=== PATIENT | female | born 1985 | race Two or more races ===

== ENCOUNTER 2024-08-25 07:35 | Inpatient (IN) | payer MEDICAID, SELFPAY ==
[2024-08-25] VITALS (179 sets, daily range): BP systolic 84–149; BP diastolic 52–80; PULSE 55–187; RESP 16; TEMP 36.3–36.9; O2SAT 82–99; BMI 25.9
--- NOTE | 2024-08-25 07:41 | XR_ITS ---
Examination: Complete OB ultrasound greater than 14 weeks Date and time of exam: August 25, 2024 at 0819 hrs. Indications: Advanced maternal age Findings: Viable intrauterine single fetus with single amniotic sac presentation cephalic Cardiac motion 136 BPM Placenta anterior grade 3 Umbilical cord insertion seen Amniotic fluid index 7 cm Cervix obscured by the fetus Right ovary 2.6 x 1.8 x 1.9 cm arterial flow 13 mm right ovarian follicular cyst Left ovary obscured by bowel gas. Composite estimated gestational age based on BPD, head circumference, abdominal circumference, femur length is 38 weeks 1 day Estimated weight 3577 g. Survey of intracranial anatomy, spinal anatomy, abdominal anatomy, four-chamber heart performed with no abnormalities identified. Impression: Viable intrauterine gestation cephalic presentation Estimated gestational age 38 weeks 1 day.
[2024-08-25 08:25] LABS: Basophils % (Auto) 0 % (0-2.5); Eosinophils # (Auto) 0.1 Thou/mm3 (0.0-0.5); Eosinophils % (Auto) 0 % (0-10); Hematocrit 35.9 % (36.0-46.0); Hemoglobin 12.5 g/dL (12.0-16.0); Immature Granulocytes % (Auto) 2 % (0-0); Immature Granulocytes Auto 0.17 Thou/mm3 (0.00-0.00); Lymphocytes # (Auto) 2.2 Thou/mm3 (1.0-4.8); Lymphocytes % (Auto) 20 % (10-50); Mean Corpuscular HGB Conc 34.8 g/dl (31.0-37.0); Mean Corpuscular Hemoglobin 32.4 pg (25.0-35.0); Mean Corpuscular Volume 93 fL (80-100); Monocytes # (Auto) 0.7 Thou/mm3 (0.0-0.8); Monocytes % (Auto) 7 % (0-12); Neutrophils % (Auto) 72 % (37-80); Nucleated Red Blood Cell % 0 /100 WBC (0); Platelet Count 183 Thou/mm3 (140-440); RDW Standard Deviation 56.5 fL (36.4-46.3); Red Blood Count 3.86 Miln/mm3 (4.00-5.20); White Blood Count 11.2 Thou/mm3 (3.6-11.0)
[2024-08-25] MEDS: RINGERS LACTATED 1000 ML 1,000 ML 125 ML IV ×2 (09:35→13:39)
[2024-08-25] MEDS: Ampicillin Inj 2,000 MG in SODIUM CHLORIDE 0.9% (P) 100 ML 200 MG IV (09:37)
[2024-08-25] MEDS: DINOPROSTONE 10 MG VAG.SUPP VAGINAL ×2 (10:27→16:07)
--- NOTE | 2024-08-25 10:37 | PD.LDHP ---
Documentation for date of: 08/25/24 OB Labor/Induct. HPI History of Present Illness History of present illness: 39 y/o @39w1d, per LMP , here for IOL. Patient was scheduled tohave a c section for breech presentation , however , on US today , its cephalic. has been uncomplicated. No contraction , leaking bleeding. Previous VDX3 History of Present Dating criteria: LMP confirmed by 1st trimester US Adequate Care: Yes Labs Labs: Positive: Group Beta Strep and Negative: Hepatitis B, HIV, Chlamydia and Gonorrhea Meds Home Medications and Allergies Home Medications ?Medication ?Instructions ?Recorded ?Confirmed ?Type ferrous sulfate 325 mg (65 mg 325 mg PO QDAY 08/25/24 08/25/24 History iron) tablet (FeroSul) vitamins no.159-iron 1 tab PO QDAY 08/25/24 08/25/24 History fumarate 28 mg-folic acid 800 mcg tablet ( Vitamin) Allergies Allergy/AdvReac Type Severity Reaction Status Date / Time No Known Allergies Allergy Verified 08/25/24 07:59 OB Exam Physical Exam Vital signs: Pulse BP 78 119/75 08/25/24 10:26 08/25/24 10:26 Constitutional Constitutional: no acute distress Routine HEENT Exam Head: Present normocephalic and atraumatic Eye: Present EOMI and PERRL ENT: Present mucous membranes moist Routine Neck Exam Neck: Present supple and trachea midline Routine Cardiovascular Exam Cardiovascular: Present RRR Routine Abdominal Exam Abdominal: Present soft and normoactive bowel sounds Detailed Labor and Delivery Exam Dilation (cm): fingertip Effacement (%): 0 Cervix position: anterior Presentation: Vertex Routine Extremities Exam Extremities: Present full ROM Routine Skin Exam Skin: Present intact, dry and warm Routine Neurological Exam Neurological: Present alert, oriented X3 and CN II-XII intact Routine Psychiatric Exam Psychiatric: Present normal affect and normal thought process OB Results Labs 08/25/24 08:17 Labs: Short CBC 08/25/24 Range/Units 08:17 WBC 11.2 H (3.6-11.0) Thou/mm3 Hgb 12.5 (12.0-16.0) g/dL Hct 35.9 L (36.0-46.0) % Plt Count 183 (140-440) Thou/mm3 Impressions Impression: 39 Y/O @39W1D, IOL for advanced maternal age GBS+ve, started prophylaxis NIPT, Carrier screen negative. Anatomy wnl UScephalic, EFW 3577 gm OB Assessment & Plan Additional Plan Additional Plan Comment: cervidil to be started Contineous FHT monitoring
--- NOTE | 2024-08-25 10:38 | PRELIM_ITS ---
Obstetric ultrasound. August 25, 2024 at 0819 hoursClinical history: Unstable lie, AMA.Comparison: None.Findings:There is a gravid uterus with a live fetus in cephalic presentation of mean gestational age 38 weeks and 1 day (by biometry). cardiac activity is present at a heart rate of 136 beats per minute. The placenta is anterior in location, maturity grade III. There is no evidence of placenta previa or retroplacental hemorrhage. Amniotic fluid is adequate (ACOSTA = 7 cm) and is normal f or advanced gestational age. Estimated weight is 3577 grams+/- 529 grams. Estimated due date by ultrasound is 09/07/2024. The cervical length could not be evaluated due to bowel gas artifact. The right ovary measures 2.6 x 1.8 x 1.9 cm and demonstrates a small cystic lesion measuring 1.3 x 1 x 1. 1 cm, which may represent dominant follicle. The right ovary demonstrates normal color flow signal on Doppler evaluation. The left ovary is not visualized due to bowel gas.No pelvic free fluid is seen. Impression:Gravid uterus with a single live fetus in cephalic presentation of mean gestational age 38 weeks and 1 day.Other findings as described above. Report Electronically Signed By: Cami Estrada 10:37:57 AM [EST]
[2024-08-25] MEDS: Ampicillin Inj 1,000 MG in SODIUM CHLORIDE 0.9% (P) 50 ML 50 MG IV ×2 (14:49→19:54)
[2024-08-25 15:54] LABS: Syphilis Nonreactive (Nonreactive)
--- NOTE | 2024-08-25 16:38 | PD.LDPN ---
Documentation for date of: 08/25/24 OB Labor Progress Note Pain Control Comments: I spoke to the patinet regarding plan of care. Cervidil placed earlier was removed as the baby was cat 2 FHT . After resuscitation , baby reverted back to category 1. Cervical status remained unchanged. Option of PLTCS was also discussed with her as she is still remote from delivery. María Elena wanst to try again after status is reassuring Second cervidil to be placed and hearn can be inserted after cervix is more favorable for insertion Pelvic Exam Dilation (cm): fingertip Effacement (%): 0
[2024-08-25] MEDS: RINGERS LACTATED 1000 ML 1,000 ML 100 ML IV (19:54)
[2024-08-25] MEDS: LIDOCAINE HCL 1% 20 ML VIAL INFL (22:32)
[2024-08-25] MEDS: METHYLERGONOVINE INJ 0.2 MG/ML VIAL IM (22:41)
[2024-08-25] MEDS: OXYTOCIN in NS 20 units 20 UNIT/1,000 ML BAG 125 UNIT IV (22:43)
[2024-08-25] MEDS: MISOPROSTOL 200 mCg TABLET 800 MCG PR (22:45)
[2024-08-25] MEDS: TRANEXAMIC ACID 1,000 MG IVPB 1,000 MG/100 ML BAG 200 MG IV (22:46)
[2024-08-25] MEDS: BENZO/LANO/ALOE (Dermoplast) 60 GM CAN 1 SPRAY TOP (22:58)
[2024-08-26] VITALS (10 sets, daily range): BP systolic 99–130; BP diastolic 67–81; PULSE 72–97; RESP 15–16; TEMP 36.8–37.2; O2SAT 94–98
--- NOTE | 2024-08-26 02:11 | PD.LDDELS ---
Data (Golden) Data : 5 Para: 3 Term: 3 : 0 : 1 Delivery Data (Golden) Labor Data ROM Date: 08/25/24 ROM Time: 22:05 Rupture Type: AROM Amniotic Fluid: Clear Delivery Data Labor Onset Stage 1 Date: 08/25/24 Labor Onset Stage 1 Time: 21:22 Labor Onset Stage 2 Date: 08/25/24 Labor Onset Stage 2 Time: 22:22 Delivery Date: 08/25/24 Delivery Time: 22:36 Gestational age (weeks): 39 Gestational age (days): 1 Placenta Delivery Date: 08/25/24 Placenta Delivery Time: 22:38 Delivered by: Sol Alcantara Delivery nurse: Rose Marie Smith Other staff at delivery: 2nd Nurse Other staff at delivery: Nursery Nurse Other staff at delivery: Nursery Nurse Other staff at delivery: RT Other staff at delivery: Samanta Hammer Other staff at delivery: Cecilia Mays Other staff at delivery: jennifer herrera Other staff at delivery: sharon Delivery Method Delivery: Vaginal Delivery Type: Vacuum Assisted Presentation: Vertex Anesthesia Type Primary Anesthesia: Epidural Secondary Anesthesia: Local Episiotomy Episiotomy: Right Mediolateral Perineal repair Sutures used for repair: 3.0 Vicryl EBL Estimated blood loss (ml): 350 Umbilical Cord Nuchal Cord: None [place] Data (Golden) [place] Data Infant Gender: Male Identification Band Number: [id number] Weight Grams: 3640 1 Minute Total: 9 5 Minute Total: 9 Additional Comments Additional comments: shoulders and body delivered atraumatically AMTSL done placenta delivered intact atonic uterus resolved after tranexamic acid, Methergine and misoprostol
[2024-08-26 06:25] LABS: Basophils % (Auto) 0 % (0-2.5); Eosinophils % (Auto) 0 % (0-10); Hematocrit 31.9 % (36.0-46.0); Hemoglobin 10.9 g/dL (12.0-16.0); Immature Granulocytes % (Auto) 1 % (0-0); Lymphocytes # (Auto) 1.3 Thou/mm3 (1.0-4.8); Lymphocytes % (Auto) 8 % (10-50); Mean Corpuscular HGB Conc 34.2 g/dl (31.0-37.0); Mean Corpuscular Hemoglobin 32.1 pg (25.0-35.0); Mean Corpuscular Volume 94 fL (80-100); Monocytes % (Auto) 6 % (0-12); Neutrophils # (Auto) 13.8 Thou/mm3 (1.8-7.7); Neutrophils % (Auto) 85 % (37-80); Nucleated Red Blood Cell % 0 /100 WBC (0); Platelet Count 162 Thou/mm3 (140-440); RDW Standard Deviation 55.6 fL (36.4-46.3); White Blood Count 16.2 Thou/mm3 (3.6-11.0)
[2024-08-26] MEDS: IBUPROFEN TAB 400 MG TABLET 800 MG PO ×2 (08:38→19:18)
--- NOTE | 2024-08-26 08:55 | PD.LDPPPRG ---
Subjective Subjective Interval history: Delivery type: Patient doing well this morning. No acute complaints. Ambulating, tolerating p.o. and voiding without difficulty. HTN/Pre-Eclampsia screen: No chest pain, shortness of breath, headache, visual changes, epigastric or right upper quadrant pain. Breast-feeding, lochia diminishing. Bowel: Flatus+/ BM+ Exam Vital Signs Temp Pulse Resp BP Pulse Ox O2 Del Method 98.7 F 72 16 130/81 95 Room Air 08/26/24 03:45 08/26/24 03:45 08/26/24 03:45 08/26/24 03:45 08/26/24 03:45 08/26/24 03:45 Constitutional Constitutional: no acute distress Routine HEENT Exam Head: Present normocephalic and atraumatic Eye: Present EOMI and PERRL ENT: Present mucous membranes moist Routine Neck Exam Neck: Present supple and trachea midline Routine Respiratory Exam Respiratory: Present chest non-tender, lungs clear, normal breath sounds and no resp distress Routine Cardiovascular Exam Cardiovascular: Present RRR Routine Abdominal Exam Abdominal: Present soft and normoactive bowel sounds Routine Extremities Exam Extremities: Present full ROM Routine Skin Exam Skin: Present intact, dry and warm Routine Neurological Exam Neurological: Present alert, oriented X3 and CN II-XII intact Routine Psychiatric Exam Psychiatric: Present normal affect and normal thought process Objective Labs 08/26/24 05:42 Labs: Laboratory Results - last 24 hr 08/25/24 08/25/24 08/26/24 08:00 08:17 05:42 WBC 11.2 H 16.2 H D RBC 3.86 L 3.40 L Hgb 12.5 10.9 L Hct 35.9 L 31.9 L MCV 93 94 MCH 32.4 32.1 MCHC 34.8 34.2 RDW Std Deviation 56.5 H 55.6 H Plt Count 183 162 Neut % (Auto) 72 85 H Lymph % (Auto) 20 8 L Roberts % (Auto) 7 6 Eos % (Auto) 0 0 Baso % (Auto) 0 0 Neut # (Auto) 8.0 H 13.8 H Lymph # (Auto) 2.2 1.3 Roberts # (Auto) 0.7 1.0 H Eos # (Auto) 0.1 0.0 Baso # (Auto) 0.0 0.0 Immature Gran # (Auto) 0.17 H 0.10 H Absolute Nucleated RBC 0.00 0.00 Immature Gran % 2 H 1 H Nucleated RBC % 0 0 Syphilis Serology Nonreactive Blood Type B Positive Antibody Screen NEGATIVE Blood Bank Wristband ID Yes Assessment & Plan Problem List (1) Vaginal delivery: Status: Acute Assessment and plan: 1. Continue routine /post-op care 2. Labs reviewed, cbc appropriate 3. Remove dressing/[place] 4. Encourage to ambulate, shower 5. Encourage PO intake, breast feeding Time Spent With Patient Time: Total time spent is greater than 50% in coordination of care (as documented) at patient's floor/unit and/or counseling patient:
[2024-08-27 00:20] VITALS: BP 94/61; PULSE 70; RESP 12; TEMP 36.6; O2SAT 97
[2024-08-27 08:15] VITALS: BP 95/68; PULSE 73; RESP 16; TEMP 36.6; O2SAT 99
--- NOTE | 2024-08-27 09:02 | PD.LDPPPRG ---
Subjective Subjective Interval history: Delivery type: Patient doing well this morning. No acute complaints. Ambulating, tolerating p.o. and voiding without difficulty. HTN/Pre-Eclampsia screen: No chest pain, shortness of breath, headache, visual changes, epigastric or right upper quadrant pain. Breast-feeding, lochia diminishing. Bowel: Flatus+/ BM+ Exam Vital Signs Temp Pulse Resp BP Pulse Ox O2 Del Method 97.9 F 70 12 94/61 97 Room Air 08/27/24 00:20 08/27/24 00:20 08/27/24 00:20 08/27/24 00:20 08/27/24 00:20 08/27/24 00:20 Constitutional Constitutional: no acute distress Routine HEENT Exam Head: Present normocephalic and atraumatic Eye: Present EOMI and PERRL ENT: Present mucous membranes moist Routine Neck Exam Neck: Present supple and trachea midline Routine Respiratory Exam Respiratory: Present chest non-tender, lungs clear, normal breath sounds and no resp distress Routine Cardiovascular Exam Cardiovascular: Present RRR Routine Abdominal Exam Abdominal: Present soft and normoactive bowel sounds Routine Extremities Exam Extremities: Present full ROM Routine Skin Exam Skin: Present intact, dry and warm Routine Neurological Exam Neurological: Present alert, oriented X3 and CN II-XII intact Routine Psychiatric Exam Psychiatric: Present normal affect and normal thought process Objective Labs 08/26/24 05:42 Assessment & Plan Problem List (1) Vaginal delivery: Status: Acute Assessment and plan: PPD/POD#2 1. Continue routine care 2. Transition to PO meds. 3. Encourage to ambulate/ breast-feed 4. Anticipate discharge home today. Time Spent With Patient Time: Total time spent is greater than 50% in coordination of care (as documented) at patient's floor/unit and/or counseling patient:
--- NOTE | 2024-08-27 09:03 | ESDS_ITS ---
DS: Providers Provider Date of admission: 08/25/24 07:35 Primary care physician: CHASTITY Cheney(COLLEEN) Admitting Provider: Sol Alcantara MD Attending Provider on Admission: Pradip Rader MD Consults: 08/25/24 22:50 Referral Routine Comment: Attending Provider on DC: Pradip Rader MD Discharging Provider: Pradip Rader MD DS: Diagnosis Problem List Completed Was Problem List Reviewed/Reconciled?: Yes Summary/Hosp Course Brief History: 39 y/o @39w1d, per LMP , here for IOL. Patient was scheduled tohave a c section for breech presentation , however , on US today , its cephalic. has been uncomplicated. No contraction , leaking bleeding. Previous VDX3 Peripartum Data Procedures: Procedures Operation Date: 08/25/24 07:45 <No data on this case meets the specified criteria> Time Spent with Patient Time attestation: Total time spent providing and/or coordinating discharge services: Exam Vital Signs Temp Pulse Resp BP Pulse Ox O2 Del Method 97.9 F 70 12 94/61 97 Room Air 08/27/24 00:20 08/27/24 00:20 08/27/24 00:20 08/27/24 00:20 08/27/24 00:20 08/27/24 00:20 Discharge Plan Plan Patient Disposition: HOME (Self Care) Patient condition on transfer: Stable Prescriptions/Referrals Prescriptions/Med Rec: New ibuprofen 400 mg Tablet 800 mg PO Q8H PRN (Reason: See Comments) 10 Days Qty: 30 0RF docusate sodium [Stool Softener] 100 mg capsule 100 mg PO QDAY 30 Days Qty: 30 0RF Continued Vitamin 28 mg iron- 800 mcg Tablet 1 tab PO QDAY ferrous sulfate [FeroSul] 325 mg (65 mg iron) tablet 325 mg PO QDAY Patient Comments: take 1 tablet by mouth once daily Referrals: Malina Cannon FNP ([id number]) [Primary Care Provider] - Patient/Caregiver Discharge Instructions Meds to Beds: Yes Discharge Activity: activity as tolerated Education Materials: After a Vaginal , Understanding Blues, After Delivery [place] Concerns, Nutrition While , Feel Healthy After Print Language: Upper Sorbian Activity Restrictions/Additional Instructions: Follow up with OB in 4 weeks for check up Stand Alone Forms: Lianna Hernandez Info., Patient Portal Info Letter, DC from Surgery Discharge Order Discharge Orders: Discharge (Routine); Ordered 08/27/24 Ordered By: Pradip Rader Planned Discharge Date 08/27/24
== END 2024-08-27 10:45 | disposition home or self-care (01) | DRG 560 ==
LOC: S4SX 21:41 → S4NX 08-26 01:46
PROVIDERS: Obstetrics & Gynecology; Admitting Provider Student in an Organized Health Care Education/Training Program; PCP Nurse Practitioner Primary Care; Visit Provider Obstetrics & Gynecology
PROC: 0UL70ZZ Occlusion of Bilateral Fallopian Tubes, Open Approach (ICD-10-PCS; CPT 59514; principal; 2024-08-25 07:30)
DX: O62.2 Other uterine inertia (principal); Z37.0 Single live birth; Z3A.39 39 weeks gestation of pregnancy
CPT/HCPCS: 36415; 59409; 76805; 85025; 86780; 86850; 86900; 86901; J0290; J2210; J2590; J3490; J7050; J7120; S0191; A9270